=== PATIENT | male | born 1970 | race Hispanic/Latino ===

== ENCOUNTER 2022-08-29 06:32 | Inpatient (IN) | payer BC ==
[~2022-08-29] VITALS: Ht 172.7 cm; Wt 81.6 kg
[2022-08-29] MEDS ORDERED: SODIUM CHLORIDE 0.9% 1000ML 1,000 ML ONE ×3 (06:55→09:14)
[2022-08-29] MEDS ORDERED: ONDANSETRON HCL INJ 2MG/ML 2ML 2 MG/ML VIAL ONE ×2 (06:55→12:26)
[2022-08-29] MEDS ORDERED: SODIUM CHLORIDE 0.9% 1000ML 1,000 ML IV STA ×4 (06:59→09:13)
[2022-08-29] MEDS ORDERED: ONDANSETRON HCL INJ 2MG/ML 2ML 2 MG/ML VIAL IV STA (06:59)
[2022-08-29] MEDS ORDERED: ACETAMINOPHEN 325 MG TAB PO STA (07:08)
[2022-08-29] MEDS ORDERED: IOPAMIDOL 370 MG/ML 100 ML INFUS..BTL INJ ONE (07:12)
[2022-08-29] MEDS ORDERED: ACETAMINOPHEN 325 MG TAB ONE (07:51)
[2022-08-29] MEDS ORDERED: PIPERACILLIN/TAZOBACTAM 3.375 GM VIAL ONE (07:52)
[2022-08-29] MEDS ORDERED: ONDANSETRON HCL INJ 2MG/ML 2ML 2 MG/ML VIAL IV PRN (08:30)
[2022-08-29] MEDS ORDERED: Morphine 4mg INJECTION 4 MG/ML INJ IV PRN (08:30)
[2022-08-29] MEDS: SODIUM CHLORIDE 0.9% 1000ML 1,000 ML IV SCH ×2 (10:35→18:24)
[2022-08-29 12:04] LABS: CREATINE KINASE 73 IU/L (30-200)
[2022-08-29] MEDS ORDERED: SIMETHICONE 80 MG CHEW PO PRN (12:15)
[2022-08-29] MEDS ORDERED: DEXTROSE 50% SYRINGE 50 ML IV PRN (12:15)
[2022-08-29] MEDS ORDERED: POVIDONE IODINE 0.05% 0.05 % ML PO ONE (12:26)
[2022-08-29] MEDS ORDERED: METOCLOPRAMIDE HCL 10 MG/2ML VIAL ONE (12:26)
[2022-08-29] MEDS ORDERED: LIDOCAINE HCL 2% LOCAL INJ 5 ML SDV VIAL INJ ONE (12:26)
[2022-08-29] MEDS ORDERED: LABETALOL HCL 5 MG/ML 20ML VIAL ONE (12:26)
[2022-08-29] MEDS ORDERED: PROPOFOL IV EMULSION 10 MG/ML 20 ML VIAL ONE (12:26)
[2022-08-29 12:29] LABS: CHOL/HDL RATIO 4.3 (3.9-4.7)
[2022-08-29 15:21] VITALS: BP 121/76
[2022-08-29 15:48] VITALS: BP 121/76
[2022-08-29] MEDS: INSULIN REGULAR, HUMAN 100 UNIT/1 ML SQ SCH ×2 (16:55→22:10)
[2022-08-29] MEDS: ONDANSETRON HCL INJ 2MG/ML 2ML 2 MG/ML VIAL IV PRN (18:24)
[2022-08-29] MEDS: ACETAMINOPHEN 325 MG TAB PO PRN ×2 (18:33→22:12)
[2022-08-29] MEDS ORDERED: Vancomycin IV 1 GM in SODIUM CHLORIDE 0.9% 250ML 250 ML IV ONE (19:30)
[2022-08-29 20:32] LABS: BASOPHILS % 0.3 % (0.0-1.0); HEMATOCRIT 28.2 % (38.2-49.6); LYMPHOCYTES # (AUTO) 0.4 (1.0-3.2); LYMPHOCYTES % 2.5 % (18.0-39.1); MEAN CORPUSCULAR HEMOGLOBIN 28.1 pg (28-32); MEAN CORPUSCULAR HGB CONC 35.5 g/dL (31-35); MEAN CORPUSCULAR VOLUME 79.2 fL (81-99); MONOCYTES # (AUTO) 0.7 (0.2-0.8); MONOCYTES % 4.4 % (4.4-11.3); NEUTROPHILS # (AUTO) 14.5 (2.1-6.9); NEUTROPHILS % 91.9 % (38.7-80.0); PLATELET COUNT 235 x10e3/uL (140-360); RED BLOOD COUNT 3.56 x10e6/uL (4.3-5.7); RED CELL DISTRIBUTION WIDTH 11.6 % (11.7-14.4)
[2022-08-29 20:49] LABS: ALBUMIN 2.2 g/dL (3.5-5.0); ALBUMIN/GLOBULIN RATIO 0.7 (0.8-2.0); ANION GAP 12.5 mmol/L (8-16); CALCIUM 7.5 mg/dL (8.4-10.2); CREATININE, SERUM 0.74 mg/dL (0.72-1.25); POTASSIUM 3.5 mmol/L (3.5-5.1)
[2022-08-29 21:08] LABS: CREATINE KINASE MB 0.9 ng/mL (0-5.0)
[2022-08-29 22:01] VITALS: BP 91/64
[2022-08-30] VITALS (9 sets, daily range): BP systolic 91–115; BP diastolic 64–68
[2022-08-30] MEDS: SODIUM CHLORIDE 0.9% 1000ML 1,000 ML IV SCH ×3 (00:30→21:39)
[2022-08-30] MEDS: ACETAMINOPHEN 325 MG TAB PO PRN ×3 (05:23→23:10)
[2022-08-30] MEDS ORDERED: Vancomycin IV 1 GM in SODIUM CHLORIDE 0.9% 250ML 250 ML IV ONE (05:30)
[2022-08-30] MEDS: INSULIN REGULAR, HUMAN 100 UNIT/1 ML SQ SCH ×4 (07:30→21:46)
[2022-08-30 08:10] LABS: ALBUMIN/GLOBULIN RATIO 0.6 (0.8-2.0); ANION GAP 14.4 mmol/L (8-16); CALCIUM 7.4 mg/dL (8.4-10.2); CREATININE, SERUM 0.71 mg/dL (0.72-1.25); POTASSIUM 3.4 mmol/L (3.5-5.1)
[2022-08-30 08:44] LABS: CREATINE KINASE MB 0.7 ng/mL (0-5.0)
[2022-08-30 09:32] LABS: BASOPHILS # (AUTO) 0.1 (0.0-0.1); BASOPHILS % 0.4 % (0.0-1.0); EOSINOPHILS % 0.1 % (0.0-6.0); HEMATOCRIT 29.1 % (38.2-49.6); HEMOGLOBIN 10.1 g/dL (14.0-18.0); LYMPHOCYTES # (AUTO) 0.6 (1.0-3.2); LYMPHOCYTES % 3.4 % (18.0-39.1); MEAN CORPUSCULAR HGB CONC 34.7 g/dL (31-35); MEAN CORPUSCULAR VOLUME 80.6 fL (81-99); MONOCYTES # (AUTO) 0.9 (0.2-0.8); MONOCYTES % 5.7 % (4.4-11.3); NEUTROPHILS # (AUTO) 14.6 (2.1-6.9); NEUTROPHILS % 89.6 % (38.7-80.0); PLATELET COUNT 261 x10e3/uL (140-360); RED BLOOD COUNT 3.61 x10e6/uL (4.3-5.7); RED CELL DISTRIBUTION WIDTH 11.7 % (11.7-14.4)
[2022-08-30] MEDS: Doxycycline IV 100 MG in SODIUM CHLORIDE 0.9% 100 ML IV SCH ×2 (12:32→21:00)
[2022-08-30] MEDS ORDERED: LIDOCAINE HCL 2% LOCAL 20 ML VIAL INJ ONE (13:30)
[2022-08-30 13:50] LABS: INR 1.24; PROTHROMBIN TIME 16.1 seconds (11.9-14.5)
[2022-08-30] MEDS: ONDANSETRON HCL INJ 2MG/ML 2ML 2 MG/ML VIAL IV PRN (14:54)
[2022-08-30] MEDS: FAMOTIDINE 20 MG TAB PO SCH (15:46)
[2022-08-30 18:39] LABS: BASOPHILS # (AUTO) 0.1 (0.0-0.1); BASOPHILS % 0.3 % (0.0-1.0); EOSINOPHILS % 0.1 % (0.0-6.0); HEMATOCRIT 28.7 % (38.2-49.6); LYMPHOCYTES # (AUTO) 0.5 (1.0-3.2); LYMPHOCYTES % 3.7 % (18.0-39.1); MEAN CORPUSCULAR HGB CONC 34.8 g/dL (31-35); MEAN CORPUSCULAR VOLUME 80.4 fL (81-99); MONOCYTES # (AUTO) 0.6 (0.2-0.8); MONOCYTES % 4.1 % (4.4-11.3); NEUTROPHILS # (AUTO) 13.5 (2.1-6.9); PLATELET COUNT 243 x10e3/uL (140-360); RED BLOOD COUNT 3.57 x10e6/uL (4.3-5.7); RED CELL DISTRIBUTION WIDTH 11.6 % (11.7-14.4)
[2022-08-30 18:56] LABS: ANION GAP 11.2 mmol/L (8-16); CALCIUM 7.4 mg/dL (8.4-10.2); CREATININE, SERUM 0.74 mg/dL (0.72-1.25); POTASSIUM 3.2 mmol/L (3.5-5.1)
[2022-08-30] MEDS ORDERED: POTASSIUM CHLORIDE 20 MEQ TAB CR PO ONE ×2 (19:15→20:30)
[2022-08-30] MEDS: SODIUM CHLORIDE 1 GM TAB PO SCH (21:40)
[2022-08-31] VITALS (8 sets, daily range): BP systolic 100–134; BP diastolic 64–77
[2022-08-31] MEDS: FAMOTIDINE 20 MG TAB PO SCH ×2 (07:30→16:54)
[2022-08-31] MEDS: INSULIN REGULAR, HUMAN 100 UNIT/1 ML SQ SCH ×4 (07:30→21:42)
[2022-08-31 07:42] LABS: BASOPHILS # (AUTO) 0.1 (0.0-0.1); BASOPHILS % 0.4 % (0.0-1.0); EOSINOPHILS % 0.2 % (0.0-6.0); HEMATOCRIT 29.8 % (38.2-49.6); HEMOGLOBIN 10.7 g/dL (14.0-18.0); LYMPHOCYTES # (AUTO) 0.8 (1.0-3.2); LYMPHOCYTES % 5.9 % (18.0-39.1); MEAN CORPUSCULAR HEMOGLOBIN 30.3 pg (28-32); MEAN CORPUSCULAR HGB CONC 35.9 g/dL (31-35); MEAN CORPUSCULAR VOLUME 84.4 fL (81-99); MONOCYTES # (AUTO) 0.6 (0.2-0.8); MONOCYTES % 3.9 % (4.4-11.3); NEUTROPHILS # (AUTO) 12.5 (2.1-6.9); PLATELET COUNT 190 x10e3/uL (140-360); RED BLOOD COUNT 3.53 x10e6/uL (4.3-5.7); RED CELL DISTRIBUTION WIDTH 12.6 % (11.7-14.4)
[2022-08-31 07:52] LABS: ANION GAP 14.6 mmol/L (8-16); CALCIUM 7.7 mg/dL (8.4-10.2); CREATININE, SERUM 0.7 mg/dL (0.72-1.25); MAGNESIUM 1.8 MG/DL (1.3-2.1); PHOSPHORUS 1.8 MG/DL (2.3-4.7); POTASSIUM 3.6 mmol/L (3.5-5.1)
[2022-08-31] MEDS: COLLAGENASE 5 GM TUBE TOP SCH (08:21)
[2022-08-31] MEDS: Doxycycline IV 100 MG in SODIUM CHLORIDE 0.9% 100 ML IV SCH ×2 (08:24→20:56)
[2022-08-31] MEDS ORDERED: BETAMETHASONE DISODIUM PHOS 6 MG/ML VIAL ONE (08:25)
[2022-08-31] MEDS ORDERED: LIDOCAINE HCL 1% LOCAL INJ 20 ML VIAL ONE (08:26)
[2022-08-31] MEDS ORDERED: BUPIVACAINE 0.25% 30ML SDV ONE ×2 (08:26→08:55)
[2022-08-31] MEDS ORDERED: EPINEPHRINE 1 MG/ML 30ML VIAL ONE (08:55)
[2022-08-31] MEDS ORDERED: Vancomycin IV 1 GM VIAL ONE (09:28)
[2022-08-31] MEDS ORDERED: MUPIROCIN 2% OINT 22 GM TUBE ONE (09:43)
[2022-08-31] MEDS ORDERED: BACITRACIN ZINC 15 GM OINT ONE (09:43)
[2022-08-31] MEDS ORDERED: Morphine 2mg Syringe 2 MG/ML SYR IV PRN (10:15)
[2022-08-31] MEDS: SODIUM CHLORIDE 1 GM TAB PO SCH ×3 (11:16→20:57)
[2022-08-31] MEDS: ONDANSETRON HCL INJ 2MG/ML 2ML 2 MG/ML VIAL IV PRN (11:30)
[2022-08-31] MEDS ORDERED: MIDAZOLAM HCL 2 MG/2 ML VIAL ONE (12:12)
[2022-08-31] MEDS ORDERED: FENTANYL CITRATE/PF 100MCG/2 ML INJ ONE (12:12)
[2022-09-01] VITALS (7 sets, daily range): BP systolic 106–138; BP diastolic 57–82
[2022-09-01 06:18] LABS: BASOPHILS % 0.2 % (0.0-1.0); EOSINOPHILS # (AUTO) 0.3 (0.0-0.4); EOSINOPHILS % 2.2 % (0.0-6.0); HEMATOCRIT 27.3 % (38.2-49.6); HEMOGLOBIN 9.9 g/dL (14.0-18.0); LYMPHOCYTES # (AUTO) 1.3 (1.0-3.2); LYMPHOCYTES % 10.5 % (18.0-39.1); MEAN CORPUSCULAR HEMOGLOBIN 29.9 pg (28-32); MEAN CORPUSCULAR HGB CONC 36.3 g/dL (31-35); MEAN CORPUSCULAR VOLUME 82.5 fL (81-99); MONOCYTES # (AUTO) 0.7 (0.2-0.8); MONOCYTES % 5.5 % (4.4-11.3); NEUTROPHILS # (AUTO) 9.9 (2.1-6.9); NEUTROPHILS % 80.7 % (38.7-80.0); PLATELET COUNT 263 x10e3/uL (140-360); RED BLOOD COUNT 3.31 x10e6/uL (4.3-5.7); RED CELL DISTRIBUTION WIDTH 12.3 % (11.7-14.4)
[2022-09-01 06:36] LABS: ALBUMIN 1.8 g/dL (3.5-5.0); ALBUMIN/GLOBULIN RATIO 0.5 (0.8-2.0); ANION GAP 11.1 mmol/L (8-16); CALCIUM 7.6 mg/dL (8.4-10.2); CREATININE, SERUM 0.7 mg/dL (0.72-1.25); POTASSIUM 3.1 mmol/L (3.5-5.1)
[2022-09-01] MEDS: Doxycycline IV 100 MG in SODIUM CHLORIDE 0.9% 100 ML IV SCH ×2 (08:54→20:49)
[2022-09-01] MEDS: SODIUM CHLORIDE 0.9% 1000ML 1,000 ML IV SCH ×2 (08:55→20:51)
[2022-09-01] MEDS: FAMOTIDINE 20 MG TAB PO SCH ×2 (08:55→16:20)
[2022-09-01] MEDS: SODIUM CHLORIDE 1 GM TAB PO SCH ×3 (08:55→20:50)
[2022-09-01] MEDS ORDERED: COLLAGENASE 5 GM TUBE TOP SCH (09:00)
[2022-09-01] MEDS: INSULIN REGULAR, HUMAN 100 UNIT/1 ML SQ SCH ×4 (09:05→21:00)
[2022-09-01] MEDS ORDERED: POTASSIUM CHLORIDE 20 MEQ TAB CR PO ONE (09:30)
[2022-09-01] MEDS: MEROPENEM 1 GM in SODIUM CHLORIDE 0.9% 100 ML IV SCH ×2 (13:17→20:50)
[2022-09-01] MEDS: COLLAGENASE 5 GM TUBE TOP SCH (13:54)
[2022-09-01] MEDS ORDERED: SODIUM CHLORIDE 0.9% 100 ML ONE (20:28)
[2022-09-01] MEDS: ATORVASTATIN 20 MG TAB PO SCH (20:50)
[2022-09-02] VITALS (9 sets, daily range): BP systolic 135–154; BP diastolic 74–84
[2022-09-02] MEDS: MEROPENEM 1 GM in SODIUM CHLORIDE 0.9% 100 ML IV SCH ×3 (06:03→21:10)
[2022-09-02] MEDS: INSULIN REGULAR, HUMAN 100 UNIT/1 ML SQ SCH ×4 (07:30→21:00)
[2022-09-02] MEDS: SODIUM CHLORIDE 1 GM TAB PO SCH ×3 (09:02→21:10)
[2022-09-02] MEDS: Doxycycline IV 100 MG in SODIUM CHLORIDE 0.9% 100 ML IV SCH ×2 (09:02→21:10)
[2022-09-02] MEDS: FAMOTIDINE 20 MG TAB PO SCH ×2 (09:02→16:53)
[2022-09-02] MEDS: COLLAGENASE 5 GM TUBE TOP SCH (09:03)
[2022-09-02] MEDS: SODIUM CHLORIDE 0.9% 1000ML 1,000 ML IV SCH (09:04)
[2022-09-02 10:19] LABS: BASOPHILS % 0.2 % (0.0-1.0); EOSINOPHILS # (AUTO) 0.3 (0.0-0.4); EOSINOPHILS % 2.5 % (0.0-6.0); HEMATOCRIT 31.5 % (38.2-49.6); LYMPHOCYTES # (AUTO) 1.7 (1.0-3.2); LYMPHOCYTES % 12.7 % (18.0-39.1); MEAN CORPUSCULAR HEMOGLOBIN 27.4 pg (28-32); MEAN CORPUSCULAR HGB CONC 34.9 g/dL (31-35); MEAN CORPUSCULAR VOLUME 78.4 fL (81-99); MONOCYTES # (AUTO) 0.8 (0.2-0.8); MONOCYTES % 5.8 % (4.4-11.3); NEUTROPHILS # (AUTO) 10.3 (2.1-6.9); NEUTROPHILS % 76.6 % (38.7-80.0); PLATELET COUNT 401 x10e3/uL (140-360); RED BLOOD COUNT 4.02 x10e6/uL (4.3-5.7); RED CELL DISTRIBUTION WIDTH 12.2 % (11.7-14.4)
[2022-09-02 10:55] LABS: EOSINOPHILS % (MANUAL) 3 % (0-7); LYMPHOCYTES % (MANUAL) 13 % (19-48); MONOCYTES % (MANUAL) 6 % (3.4-9.0); NEUTROPHILS % (MANUAL) 78 % (40-74)
[2022-09-02 10:56] LABS: PLATELET ESTIMATE ADEQUATE; PLATELET MORPHOLOGY COMMENT NORMAL; RBC MORPHOLOGY COMMENT NORMAL
[2022-09-02] MEDS: ATORVASTATIN 20 MG TAB PO SCH (21:10)
[2022-09-03] MEDS: MEROPENEM 1 GM in SODIUM CHLORIDE 0.9% 100 ML IV SCH ×3 (05:39→21:50)
[2022-09-03] MEDS: INSULIN REGULAR, HUMAN 100 UNIT/1 ML SQ SCH ×4 (07:30→21:00)
[2022-09-03 07:58] VITALS: BP 153/86
[2022-09-03 08:20] VITALS: BP 153/86
[2022-09-03] MEDS: FAMOTIDINE 20 MG TAB PO SCH ×2 (09:16→16:52)
[2022-09-03] MEDS: Doxycycline IV 100 MG in SODIUM CHLORIDE 0.9% 100 ML IV SCH ×2 (09:16→21:48)
[2022-09-03] MEDS: COLLAGENASE 5 GM TUBE TOP SCH (09:17)
[2022-09-03] MEDS: SODIUM CHLORIDE 1 GM TAB PO SCH ×3 (09:17→21:48)
[2022-09-03 11:48] VITALS: BP 151/81
[2022-09-03 15:08] LABS: BASOPHILS # (AUTO) 0.1 (0.0-0.1); BASOPHILS % 0.4 % (0.0-1.0); EOSINOPHILS # (AUTO) 0.3 (0.0-0.4); EOSINOPHILS % 2.4 % (0.0-6.0); HEMOGLOBIN 11.9 g/dL (14.0-18.0); LYMPHOCYTES # (AUTO) 1.8 (1.0-3.2); MEAN CORPUSCULAR HGB CONC 33.1 g/dL (31-35); MEAN CORPUSCULAR VOLUME 81.6 fL (81-99); MONOCYTES # (AUTO) 0.7 (0.2-0.8); NEUTROPHILS # (AUTO) 10.3 (2.1-6.9); PLATELET COUNT 496 x10e3/uL (140-360); RED BLOOD COUNT 4.41 x10e6/uL (4.3-5.7); RED CELL DISTRIBUTION WIDTH 11.9 % (11.7-14.4)
[2022-09-03 15:31] LABS: CALCIUM 8.5 mg/dL (8.4-10.2); CREATININE, SERUM 0.71 mg/dL (0.72-1.25)
[2022-09-03 15:45] VITALS: BP 135/80
[2022-09-03 20:00] VITALS: BP 149/83
[2022-09-03] MEDS ORDERED: SODIUM CHLORIDE 0.9% 200 ML ONE (20:13)
[2022-09-03] MEDS ORDERED: MEROPENEM 1 GM VIAL ONE (20:26)
[2022-09-03] MEDS: ATORVASTATIN 20 MG TAB PO SCH (21:49)
[2022-09-03] MEDS: SODIUM CHLORIDE 0.9% 1000ML 1,000 ML IV SCH (21:52)
[2022-09-04] VITALS (7 sets, daily range): BP systolic 111–146; BP diastolic 75–85
[2022-09-04] MEDS ORDERED: SODIUM CHLORIDE 0.9% 100 ML ONE ×2 (05:02→21:21)
[2022-09-04] MEDS: MEROPENEM 1 GM in SODIUM CHLORIDE 0.9% 100 ML IV SCH ×3 (05:27→23:42)
[2022-09-04] MEDS: INSULIN REGULAR, HUMAN 100 UNIT/1 ML SQ SCH ×4 (07:30→21:00)
[2022-09-04] MEDS: SODIUM CHLORIDE 1 GM TAB PO SCH ×3 (09:41→21:36)
[2022-09-04] MEDS: FAMOTIDINE 20 MG TAB PO SCH ×2 (09:41→17:28)
[2022-09-04] MEDS: Doxycycline IV 100 MG in SODIUM CHLORIDE 0.9% 100 ML IV SCH ×2 (09:41→21:34)
[2022-09-04] MEDS: COLLAGENASE 5 GM TUBE TOP SCH (09:42)
[2022-09-04 11:02] LABS: ANION GAP 12.4 mmol/L (8-16); CALCIUM 8.2 mg/dL (8.4-10.2); CREATININE, SERUM 0.68 mg/dL (0.72-1.25); POTASSIUM 4.4 mmol/L (3.5-5.1)
[2022-09-04] MEDS ORDERED: BUPIVACAINE HCL 0.5% INJ 30 ML VIAL INJ ONE (14:45)
[2022-09-04] MEDS ORDERED: BETAMETHASONE DISODIUM PHOS 6 MG/ML VIAL IM ONE (14:45)
[2022-09-04] MEDS ORDERED: LIDOCAINE HCL 1% LOCAL INJ 20 ML VIAL INJ ONE (14:45)
[2022-09-04] MEDS: ATORVASTATIN 20 MG TAB PO SCH (21:35)
[2022-09-05] VITALS (8 sets, daily range): BP systolic 113–142; BP diastolic 63–82
[2022-09-05] MEDS: MEROPENEM 1 GM in SODIUM CHLORIDE 0.9% 100 ML IV SCH ×3 (05:56→22:57)
[2022-09-05] MEDS: SODIUM CHLORIDE 0.9% 1000ML 1,000 ML IV SCH ×2 (05:57→19:40)
[2022-09-05] MEDS: INSULIN REGULAR, HUMAN 100 UNIT/1 ML SQ SCH ×4 (08:01→21:00)
[2022-09-05] MEDS: FAMOTIDINE 20 MG TAB PO SCH ×2 (08:30→16:49)
[2022-09-05] MEDS: COLLAGENASE 5 GM TUBE TOP SCH ×2 (08:52→21:40)
[2022-09-05] MEDS: SODIUM CHLORIDE 1 GM TAB PO SCH ×3 (08:52→21:33)
[2022-09-05] MEDS: Doxycycline IV 100 MG in SODIUM CHLORIDE 0.9% 100 ML IV SCH ×2 (08:52→21:34)
[2022-09-05] MEDS ORDERED: COLLAGENASE 5 GM TUBE TOP SCH (21:00)
[2022-09-05] MEDS: ATORVASTATIN 20 MG TAB PO SCH (21:33)
[2022-09-06] VITALS (8 sets, daily range): BP systolic 112–144; BP diastolic 69–82
[2022-09-06] MEDS: MEROPENEM 1 GM in SODIUM CHLORIDE 0.9% 100 ML IV SCH ×3 (04:58→21:38)
[2022-09-06] MEDS: INSULIN REGULAR, HUMAN 100 UNIT/1 ML SQ SCH ×4 (07:30→21:46)
[2022-09-06] MEDS: SODIUM CHLORIDE 1 GM TAB PO SCH ×3 (10:10→21:38)
[2022-09-06] MEDS: FAMOTIDINE 20 MG TAB PO SCH ×2 (10:10→15:59)
[2022-09-06] MEDS: Doxycycline IV 100 MG in SODIUM CHLORIDE 0.9% 100 ML IV SCH ×2 (10:10→21:37)
[2022-09-06] MEDS: COLLAGENASE 5 GM TUBE TOP SCH ×2 (10:10→21:00)
[2022-09-06] MEDS: SODIUM CHLORIDE 0.9% 1000ML 1,000 ML IV SCH (21:37)
[2022-09-06] MEDS: ATORVASTATIN 20 MG TAB PO SCH (21:38)
[2022-09-07] VITALS (8 sets, daily range): BP systolic 114–134; BP diastolic 61–76
[2022-09-07] MEDS: MEROPENEM 1 GM in SODIUM CHLORIDE 0.9% 100 ML IV SCH ×3 (04:58→22:02)
[2022-09-07 06:22] LABS: BASOPHILS % 0.3 % (0.0-1.0); EOSINOPHILS # (AUTO) 0.3 (0.0-0.4); EOSINOPHILS % 2.6 % (0.0-6.0); HEMATOCRIT 33.7 % (38.2-49.6); HEMOGLOBIN 11.2 g/dL (14.0-18.0); LYMPHOCYTES # (AUTO) 1.9 (1.0-3.2); LYMPHOCYTES % 18.7 % (18.0-39.1); MEAN CORPUSCULAR HEMOGLOBIN 27.4 pg (28-32); MEAN CORPUSCULAR HGB CONC 33.2 g/dL (31-35); MEAN CORPUSCULAR VOLUME 82.4 fL (81-99); MONOCYTES # (AUTO) 0.4 (0.2-0.8); MONOCYTES % 4.3 % (4.4-11.3); NEUTROPHILS # (AUTO) 7.3 (2.1-6.9); PLATELET COUNT 462 x10e3/uL (140-360); RED BLOOD COUNT 4.09 x10e6/uL (4.3-5.7)
[2022-09-07 06:35] LABS: ANION GAP 11.8 mmol/L (8-16); CREATININE, SERUM 0.7 mg/dL (0.72-1.25); POTASSIUM 3.8 mmol/L (3.5-5.1)
[2022-09-07] MEDS: INSULIN REGULAR, HUMAN 100 UNIT/1 ML SQ SCH ×4 (09:10→22:13)
[2022-09-07] MEDS: SODIUM CHLORIDE 1 GM TAB PO SCH ×3 (09:11→22:00)
[2022-09-07] MEDS: COLLAGENASE 5 GM TUBE TOP SCH ×2 (09:11→22:03)
[2022-09-07] MEDS: Doxycycline IV 100 MG in SODIUM CHLORIDE 0.9% 100 ML IV SCH ×2 (09:11→22:01)
[2022-09-07] MEDS: FAMOTIDINE 20 MG TAB PO SCH ×2 (09:11→16:10)
[2022-09-07] MEDS: SODIUM CHLORIDE 0.9% 1000ML 1,000 ML IV SCH (22:00)
[2022-09-07] MEDS: ATORVASTATIN 20 MG TAB PO SCH (22:01)
[2022-09-08] VITALS: BP 116/68
[2022-09-08 04:00] VITALS: BP 118/68
[2022-09-08] MEDS: MEROPENEM 1 GM in SODIUM CHLORIDE 0.9% 100 ML IV SCH (05:23)
[2022-09-08] MEDS: FAMOTIDINE 20 MG TAB PO SCH (07:30)
[2022-09-08] MEDS ORDERED: METFORMIN HCL500 MG PO (08:42)
[2022-09-08] MEDS ORDERED: LIPITOR20 MG PO (08:42)
[2022-09-08] MEDS ORDERED: SODIUM CHLORI1000 M2 PO (08:42)
[2022-09-08 08:50] VITALS: BP 125/77
[2022-09-08] MEDS: SODIUM CHLORIDE 1 GM TAB PO SCH (09:00)
[2022-09-08] MEDS: Doxycycline IV 100 MG in SODIUM CHLORIDE 0.9% 100 ML IV SCH (09:00)
[2022-09-08] MEDS: COLLAGENASE 5 GM TUBE TOP SCH (09:04)
[2022-09-08] MEDS: INSULIN REGULAR, HUMAN 100 UNIT/1 ML SQ SCH (09:05)
[2022-09-08 09:54] LABS: ANION GAP 12.3 mmol/L (8-16); CALCIUM 8.4 mg/dL (8.4-10.2); CREATININE, SERUM 0.72 mg/dL (0.72-1.25); POTASSIUM 4.3 mmol/L (3.5-5.1)
[2022-09-08 13:03] VITALS: BP 96/59
== END 2022-09-08 12:01 | disposition home or self-care (01) | DRG 854 ==
LOC: FSED 06:45 → ERHOLD 08:23 → MED/SURG3 14:57 → OBSVTOIN 08-30 08:52
PROVIDERS: ADMIT Internal Medicine; ATTEND Internal Medicine
PROC: 0KBV0ZZ Excision of Right Foot Muscle, Open Approach (ICD-10-PCS; 2022-08-31)
PROC: 0QBN0ZZ Excision of Right Metatarsal, Open Approach (ICD-10-PCS; 2022-08-31)
PROC: 3E0T3BZ Introduction of Anesthetic Agent into Peripheral Nerves and Plexi, Percutaneous Approach (ICD-10-PCS; principal; 2022-09-01)
DX: A41.9 Sepsis, unspecified organism (principal); E87.1 Hypo-osmolality and hyponatremia; L97.419 Non-pressure chronic ulcer of right heel and midfoot with unspecified severity; K52.89 Other specified noninfective gastroenteritis and colitis; R59.9 Enlarged lymph nodes, unspecified; E86.1 Hypovolemia; E11.621 Type 2 diabetes mellitus with foot ulcer; A08.4 Viral intestinal infection, unspecified; Z20.822 Contact with and (suspected) exposure to COVID-19
CPT/HCPCS: 36415; 36569; 71045; 71046; 74177; 80048; 80053; 80061; 80076; 81003; 82550; 82553; 82948; 83036; 83518; 83735; 84100; 84132; 84134; 84484; 85025; 85610; 87040; 87071; 87075; 87186; 87205; 87400; 93306; 93925; 96361; 96374; 99252; 99284; G0378; J2001; J2185; J2250; J2405; J2543; J2765; J7030; J7050; Q9967